=== PATIENT | male | born 1980 | race Caucasian/White ===

== ENCOUNTER 2019-01-25 04:29 | Emergency (ER) | payer OTHER ==
[~2019-01-25] VITALS: Ht 182.9 cm; Wt 104.3 kg
[~2019-01-25 04:29] MED LIST: ALPRAZOLAM 0.50.5 M1 PO; CLONIDINE HCL0.2 M2 PO; CLONIDINE0.1 PO; CYCLOBENZAPRINE10 MG PO; FLEXERIL PO; NABUMETONE 500500 M1 PO; NEURONTIN 300300 M1 PO; NEURONTIN 300M300 M2 PO; OXYCODON-ACETA1 EAC1 PO; PERCOCET 7.5-31 EACH PO; XANAX 0.5 MG0.5 MG PO
[2019-01-25 04:32] VITALS: BP 140/94
[2019-01-25] MEDS ORDERED: PREDNISONE 20 M20 M1 PO (05:05)
== END 2019-01-25 05:13 | disposition home or self-care (01) ==
LOC: ER 04:29
DX: L23.7 Allergic contact dermatitis due to plants, except food (principal)

== ENCOUNTER 2020-02-17 03:46 | Emergency (ER) | payer OTHER ==
[~2020-02-17] VITALS: Ht 185.4 cm; Wt 106.6 kg
[~2020-02-17 03:46] MED LIST changes: +PREDNISONE 20 M20 M1 PO
[2020-02-17 03:48] VITALS: BP 126/87
== END 2020-02-17 05:15 | disposition home or self-care (01) ==
LOC: ER 03:46
DX: L25.9 Unspecified contact dermatitis, unspecified cause (principal); F17.210 Nicotine dependence, cigarettes, uncomplicated; G89.29 Other chronic pain; M54.9 Dorsalgia, unspecified; Z79.899 Other long term (current) drug therapy

== ENCOUNTER 2021-02-28 15:03 | Emergency (ER) | payer OTHER ==
[~2021-02-28] VITALS: Ht 185.4 cm; Wt 104.8 kg
[2021-02-28 15:24] VITALS: BP 143/88
[2021-02-28] MEDS ORDERED: AUGMENTIN 875-1 EACH PO (15:47)
[2021-02-28] MEDS ORDERED: NORCO7.5 PO (15:47)
== END 2021-02-28 16:11 | disposition home or self-care (01) ==
LOC: ER 15:03
DX: S81.012D Laceration without foreign body, left knee, subsequent encounter (principal); G89.29 Other chronic pain; W54.0XXD Bitten by dog, subsequent encounter

== ENCOUNTER 2021-07-21 03:12 | Emergency (ER) | payer OTHER ==
[~2021-07-21] VITALS: Ht 185.4 cm; Wt 106.6 kg
[~2021-07-21 03:12] MED LIST changes: +AUGMENTIN 875-1 EACH PO; +NORCO7.5 PO
[2021-07-21 03:18] VITALS: BP 143/85
[2021-07-21] MEDS ORDERED: NOHOMEMEDICATIONS (03:23)
[2021-07-21] MEDS ORDERED: CEPHALEXIN500 MG PO (03:47)
[2021-07-21] MEDS ORDERED: BACTRIM DS TAB1 EACH PO (03:47)
== END 2021-07-21 03:56 | disposition home or self-care (01) ==
LOC: ER 03:12
DX: L02.416 Cutaneous abscess of left lower limb (principal); L02.415 Cutaneous abscess of right lower limb; A53.9 Syphilis, unspecified; F12.90 Cannabis use, unspecified, uncomplicated; Z20.2 Contact with and (suspected) exposure to infections with a predominantly sexual mode of transmission

== ENCOUNTER 2021-07-25 22:03 | Emergency (ER) | payer OTHER ==
[~2021-07-25] VITALS: Ht 185.4 cm; Wt 104.3 kg
[~2021-07-25 22:03] MED LIST changes: +BACTRIM DS TAB1 EACH PO; +CEPHALEXIN500 MG PO; +NOHOMEMEDICATIONS
[2021-07-25] MEDS ORDERED: NAPROSYN500 MG PO (22:52)
[2021-07-25] MEDS ORDERED: DOXYCYCLINE 10100 MG PO (22:52)
[2021-07-25 23:06] VITALS: BP 148/86
== END 2021-07-25 23:06 | disposition home or self-care (01) ==
LOC: ER 22:03
DX: L02.415 Cutaneous abscess of right lower limb (principal); L02.214 Cutaneous abscess of groin; L02.416 Cutaneous abscess of left lower limb; F17.210 Nicotine dependence, cigarettes, uncomplicated